=== PATIENT | male | born 2000 | race Caucasian/White ===

== ENCOUNTER 2024-11-19 10:24 | Emergency (ER) | payer BC, SELFPAY ==
--- NOTE | 2024-11-19 10:29 | ED.SKABFB ---
HPI - Skin/Abscess/Foreign Bdy General Chief complaint: Skin/Abscess/Foreign Body Stated complaint: Possible Poison [place] Time Seen by Provider: 11/19/24 10:50 Source: patient, RN notes reviewed and old records reviewed Mode of arrival: ambulatory Limitations: no limitations History of Present Illness HPI narrative: 24-year-old male presents to the [facility] with concerns for a itchy rash to his arms, face and through different parts of his body. Patient reports on Tuesday he was cutting down a tree. Broke out in this rash. Has been applying calamine lotion Denies any difficulty breathing. No lip or tongue swelling. Related Data Allergies Allergy/AdvReac Type Severity Reaction Status Date / Time amoxicillin (From Augmentin) Allergy Unknown Unknown Verified 11/19/24 10:45 clavulanic acid (From Allergy Unknown Unknown Verified 11/19/24 10:45 Augmentin) Review of Systems Review of Systems: All systems reviewed & are unremarkable except as noted in HPI and below Constitutional: Constitutional: Reports no additional constitutional complaints ENT: Reports system reviewed and no additional complaints, except as documented Cardiovascular: Cardiovascular: Reports no additional cardiovascular complaints, Denies chest pain and Denies dyspnea Respiratory: Respiratory: Reports no additional respiratory complaints, Denies chest congestion, Denies cough and Denies dyspnea Musculoskeletal: Musculoskeletal: Reports no additional musculoskeletal complaints Integumentary/Breasts: Skin/Breast: Reports as per HPI PMFSH Comments At the time of my signature, I reviewed and agree with the nursing past medical, surgical, social, and family history. There is no relevant family history pertinent to the patient complaint. Exam Const: General: cooperative, healthy appearing, comfortable, no acute distress, well developed, alert and well nourished Nutritional Appearance: well nourished Orientation/consciousness: patient oriented x3 Limitations: no limitations HENMT: Head: normal to inspection Ears: hearing grossly normal bilaterally, external ears normal, TM's normal bilaterally, EAC's normal, mastoids normal and no periauricular adenopathy Mouth: Yes Normal oral and palatal mucosa present, Yes lip normal, Yes tongue normal and Yes moist mucous membranes Throat: posterior oropharynx normal, uvula midline and no uvular edema Eyes: General: appearance normal, both eyes and all related structures Alignment and Position: alignment normal Neck: Neck: normal visual inspection, full ROM, no lymphadenopathy and no meningeal signs Chest: Chest palpation & inspection: normal inspection of the chest Resp: Effort & Inspection: normal respiratory effort and able to speak in complete sentences Auscultation: clear to auscultation bilaterally, no crackles, no rales, no rhonchi and no wheezes Cardio: Rate: regular rate Skin: General skin exam: normal color and no rashes or lesions noted Rashes: rashes noted (Generalized dermatitis rash) Neuro: General: patient oriented x3, gait normal, moves all extremities and no meningeal signs Cognition (Neuro): normal cognition Speech: normal speech Gait exam (Neuro): Normal gait present Extrem: General: normal to inspection, full ROM, capillary refill normal and normal gait Psych: Appearance: grossly normal and well kempt Mental Status: mental status grossly normal Speech and movement: Normal speech and movement present and Clear speech present Affect: normal affect Attitude: cooperative Course Course Level of Care: Express Care Visit Vital Signs Vital signs: Vital Signs Temperature 97.9 F 11/19/24 10:34 Pulse Rate 69 11/19/24 10:34 Respiratory Rate 18 11/19/24 10:34 Blood Pressure 115/70 11/19/24 10:34 Pulse Oximetry 100 11/19/24 10:34 Oxygen Delivery Room Air 11/19/24 10:34 Temperature 97.9 F 11/19/24 10:34 Pulse Rate 69 11/19/24 10:34 Respiratory Rate 18 11/19/24 10:34 Blood Pressure 115/70 11/19/24 10:34 Pulse Oximetry 100 11/19/24 10:34 Oxygen Delivery Room Air 11/19/24 10:34 Reviewed MDM - Skin/Abscess/Foreign Bdy MDM Narrative Medical decision making narrative: Patient sitting comfortably in exam room. Nontoxic, vitals stable. Patient in no acute distress. Patient presents with a rash x2 days. Patient is appropriate for outpatient treatment of contact dermatitis with close follow-up. Discharge instructions reviewed with patient, as well as provided in writing per nursing staff. The instructions also include specific and strict return/GO TO THE ER as well as f/u information. All questions have been answered, and the patient deny any further questions with discharge and discharge plan. Some parts of this dictation were generated by voice recognition software and may contain typographical and/or grammatical inaccuracies. Differential Diagnosis Differential diagnosis: Likely abscess of skin or subcutaneous tissue, dermatophytosis, urticaria, allergic reaction to drug, cellulitis, eczema, insect bites, impetigo and contact dermatitis Critical Care Time Critical Care Time Critical Care Time: No Discharge Plan Discharge Clinical Impression: Contact dermatitis Patient Disposition: Home, Self-Care Condition: Stable Instructions: Antibiotic Form, Contact Dermatitis (ED) Additional Instructions: The most important part of your care is follow up with Primary care provider. If you are having a hard time finding a physician please call our [facility] liaison at [phone]. Take Benadryl 25-50 mg every 8 hours for itching Take Zyrtec every day Take Pepcid 20mg daily for 7 days Use hydrocortisone cream for the rash Take the steroids starting as soon as you get them. Next dose will be 1st thing in the morning. Avoid hot showers, Take cool showers. Hot showers will make rashes worse Apply cool compresses every 2-3 hours for 15 minutes Go to the ER for new or worsening symptoms such as shortness of breath. Patient Language: Zimbabwean Prescriptions: New prednisone 20 mg tablet See Rx Instructions .Route .COMPLEX Qty: 20 0RF Rx Instructions: Take 60 mg daily for 3 days, 40 mg daily for 3 days, 20 mg daily for 3 days, 10mg day for 3 days Follow-up/Referrals: PHYSICIAN,NUCLEAR INSTRUCTOR [Primary Care Provider] - Stand Alone Forms: Work/School Release IP Time of Disposition: 10:59
[2024-11-19 10:34] VITALS: BP 115/70; PULSE 69; RESP 18; TEMP 36.6; O2SAT 100
--- OUTSIDE RECORDS SUMMARY | 2024-11-19 12:30 | XMS_ITS | Clinical Summary ---
Author Organization [facility] Address [address] [place] [address] Care Team Providers Care Top Printing Press Operator Name Role Phone Harmony Magaña APRN-LEAD CARGOMAN Unavailable [phone] Source Comments [facility],non-owned Affiliates and Associated Physician Practices is amultiple site organization consisting of ambulatory clinics and hospital sitesin [place], [place], [place] and [place]. This disclosure is being madepursuant to the Care Everywhere program and may not contain all information available regarding this patient. Last updated 18.[facility] [employer] Allergies No known active allergies Social History Tobacco Use Types Packs/Day Years Used Date Smoking Tobacco: Never Alcohol Use Standard Drinks/Week Comments Never 0 (1 standard drink = 0.6 oz pur e alcohol) AUDIT-C Answer Date Recorded Frequency of Alcohol Consumption Never 09/14/2019 Average Number of Drinks Not on file 020 Frequency of Binge Drinking Not on file 09/05 Sex and Gender Information Value Date Recorded Sex Assigned at Not on file Gender Identity Not on file Sexual Orientation Not on file Last Filed Vital Signs Vital Sign Reading Time Taken Comments Blood Pressure 122/68 09/15/2019 12:31 AM PASSENGER SCREENER Pulse 89 09/14/2019 11:00 PM PASSENGER SCREENER Temperature 36.8 C (98.3 F) 09/14/2019 11:00 PM PASSENGER SCREENER Respiratory Rate 18 09/15/2019 12:48 AM PASSENGER SCREENER Oxygen Saturation 97% 09/15/2019 12:44 AM PASSENGER SCREENER Inhaled Oxygen Concentration - - Weight 76.4 kg (168 lb 6.4 oz) 09/14/2019 11:00 PM PASSENGER SCREENER Height 182.9 cm (6') 09/14/2019 11:00 PM PASSENGER SCREENER Body Mass Index 22.84 09/14/2019 11:00 PM PASSENGER SCREENER Plan of Treatment Health Maintenance Due Date Last Done Comments HIV SCREENING 2016 HPV VACCINE (1 - Male 3-dose series) 2016 MENINGOCOCCAL (Group B) VACCINE SHARED DECISION-MAKING (1 of 2 - Standard) 2017 HEPATITIS C SCREENING 05/12/2019 DTAP/TDAP/TD VACCINES (1 - Tdap) 2020 HEPATITIS B VACCINE (1 of 3 - 19+ 3-dose series) 2020 COVID-19 VACCINE (5 - season) 2024 11/06/2021, 06/04/2021, 05/07/2021, Additional history exists INFLUENZA VACCINE (#1) 2024 2, 07/24/2021, 06/09/2020 DEPRESSION SCREENING 09/05/2024 ZOSTER VACCINE (1 of 2) 2051 HIB VACCINE Aged Out No longer eligi ble based on patient's age to complete this topic MENINGOCOCCAL GROUPS A/C/Y/W VACCINE Aged Out No longer eligible based on patient's age to complete this topic PNEUMOCOCCAL VACCINE Aged Out No long er eligible based on patient's age to complete this topic Care Teams Top Printing Press Operator Relationship Specialty Start Date End Date Harmony Magaña, FURNACE REPAIR MECHANIC-LEAD CARGOMAN [address] [facility] [address] [place] [phone] PCP - Attributed-[employer] Medicaid [place] 12/05/19
--- OUTSIDE RECORDS SUMMARY | 2024-11-19 12:30 | XMS_ITS | Referral Summary ---
Author Organization [facility] Address [address] [place] [address] Care Team Providers Care Target Worker Name Role Phone Harmony Magaña APRN-MANAGER SPORTS Unavailable [phone] Source Comments [facility],non-owned Affiliates and Associated Physician Practices is amultiple site organization consisting of ambulatory clinics and hospital sitesin [place], [place], [place] and [place]. This disclosure is being madepursuant to the Care Everywhere program and may not contain all information available regarding this patient. Last updated 18.[facility] Allergies No known active allergies Social History [...] Comments Blood Pressure 122/68 09/15/2019 12:31 AM FUSING LINE INSPECTOR Pulse 89 09/14/2019 11:00 PM FUSING LINE INSPECTOR Temperature 36.8 C (98.3 F) 09/14/2019 11:00 PM FUSING LINE INSPECTOR Respiratory Rate 18 09/15/2019 12:48 AM FUSING LINE INSPECTOR Oxygen Saturation 97% 09/15/2019 12:44 AM FUSING LINE INSPECTOR Inhaled Oxygen Concentration - - Weight 76.4 kg (168 lb 6.4 oz) 09/14/2019 11:00 PM FUSING LINE INSPECTOR Height 182.9 cm (6') 09/14/2019 11:00 PM FUSING LINE INSPECTOR Body Mass Index 22.84 09/14/2019 11:00 PM FUSING LINE INSPECTOR Plan of Treatment Not on file Care Teams Target Worker Relationship Specialty Start Date End Date Harmony Magaña, SUPERVISOR MOLDING-MANAGER SPORTS 2 [facility] [address] [place] [address] PCP - Attributed-[employer] Medicaid [place] 12/05/19
--- OUTSIDE RECORDS SUMMARY | 2024-11-19 12:30 | XMS_ITS | Patient Health Summary ---
Author Organization [facility] Address [address] [place] [address] Care Team Providers Care Vertical Boring Mill Operator Name Role Phone Harmony Magaña APRN-DIRECTOR OF RETENTION Unavailable [phone] Note from [facility],non-owned Affiliates and Associated Physician Practices is amultiple site organization consisting of ambulatory clinics and hospital sitesin [place], [place], [place] and [place]. This disclosure is being madepursuant to the Care Everywhere program and may not contain all information available regarding this patient. Last updated 18.[facility] Allergies No known active allergies Social History [...] Comments Blood Pressure 122/68 09/15/2019 12:31 AM LOADER Pulse 89 09/14/2019 11:00 PM LOADER Temperature 36.8 C (98.3 F) 09/14/2019 11:00 PM LOADER Respiratory Rate 18 09/15/2019 12:48 AM LOADER Oxygen Saturation 97% 09/15/2019 12:44 AM LOADER Inhaled Oxygen Concentration - - Weight 76.4 kg (168 lb 6.4 oz) 09/14/2019 11:00 PM LOADER Height 182.9 cm (6') 09/14/2019 11:00 PM LOADER Body Mass Index 22.84 09/14/2019 11:00 PM LOADER Procedures * CT ABDOMEN PELVIS W CONTRAST(Performed 09/14/2019) Performed for RLQ abdominal pain * URINALYSIS REFLEX MICROSCOPIC REFLEX CULTURE(Performed 09/14/2019) * LIPASE BLOOD(Performed 09/14/2019) * COMPREHENSIVE METABOLIC PANEL(Performed 09/14/2019) * CBC W AUTO DIFFERENTIAL(Performed 09/14/2019) Results * CT ABDOMEN AND PELVIS W IV CONTRAST 71104 (09/14/2019 11:44 PM LOADER) Anatomical Region Laterality Modality Abdomen, Pelvis Computed Tomogra phy 09/15/2019 7:00 AM LOADER Impressions 09/15/2019 7:10 AM LOADER No appreciable acute intra-abdominal or pelvic abnormality. Correlate clinically. Exam reviewed compensation advisor and findings conveyed to the emergency department referring service at 2351 hours central time. Narrative 09/15/2019 7:10 AM LOADER IMAGING STUDIES: CT ABDOMEN PELVIS W CONTRAST DATE: 09/14/2019 11:44 PM HISTORY: Right lower quadrant pain. 19-year-old male with lower abdominal cramping for one day. Right lower quadrant and mid abdominal pain intermittently for a a few hours. COMPARISON: No comparisons. DISCUSSION: CT abdomen and pelvis following intravenous administration of 80 ml Isovue 300 contrast. Single phase imaging. Coronal and sagittal reconstructions. No enteric contrast. Automated exposure control with radiation dose reduction. CHEST: No acute infiltrate or consolidation. 5.5 mm right lower lobe calcified granuloma. 9 mm calcified lymph node adjacent to the distal esophagus. CARDIOVASCULAR: Heart size is normal. No pericardial effusion. No abdominal aortic aneurysm or dissection. UPPER ABDOMEN: No acute abnormality of the liver, gallbladder, common bile duct, pancreas, spleen, and adrenal glands. GENITOURINARY: No renal mass, calcification, or hydronephrosis. Urinary bladder and prostate are within normal limits. LYMPHATIC: No apparent adenopathy. GASTROINTESTINAL: Moderate distention of the stomach with ingested food. Mild fluid distention of small bowel and colon. Mild to moderate colonic stool. No apparent bowel obstruction or focal inflammation. No appendicitis. No free fluid in the abdomen or pelvis. SKELETAL: No acute skeletal abnormality. Procedure Note Yo Harris MD - 09/15/2019 IMAGING STUDIES: CT ABDOMEN PELVIS W CONTRAST DATE: 09/14/2019 11:44 PM HISTORY: Right lower quadrant pain. 19-year-old male with lower abdominal cramping for one day. Right lower quadrant and mid abdominal pain intermittently for a a few hours. COMPARISON: No comparisons. DISCUSSION: CT abdomen and pelvis following intravenous administration of 80 ml Isovue 300 contrast. Single phase imaging. Coronal and sagittal reconstructions. No enteric contrast. Automated exposure control with radiation dose reduction. CHEST: No acute infiltrate or consolidation. 5.5 mm right lower lobe calcified granuloma. 9 mm calcified lymph node adjacent to the distal esophagus. CARDIOVASCULAR: Heart size is normal. No pericardial effusion. No abdominal aortic aneurysm or dissection. UPPER ABDOMEN: No acute abnormality of the liver, gallbladder, common bile duct, pancreas, spleen, and adrenal glands. GENITOURINARY: No renal mass, calcification, or hydronephrosis. Urinary bladder and prostate are within normal limits. LYMPHATIC: No apparent adenopathy. GASTROINTESTINAL: Moderate distention of the stomach with ingested food. Mild fluid distention of small bowel and colon. Mild to moderate colonic stool. No apparent bowel obstruction or focal inflammation. No appendicitis. No free fluid in the abdomen or pelvis. SKELETAL: No acute skeletal abnormality. IMPRESSION No appreciable acute intra-abdominal or pelvic abnormality. Correlate clinically. Exam reviewed compensation advisor and findings conveyed to the emergency department referring service at 2351 hours central time. Petra Bazan PRODUCT SAFETY [facility]AD[facility] ORDERABLES * URINALYSIS REFLEX MICROSCOPIC REFLEX CULTURE (09/14/2019 11:11 PM LOADER) Color UA Yellow Straw, Yellow 09/14/2019 11:21 PM LOADER [facility] Clarity UA Clear Clear 09/14/2019 11:21 PM LOADER [facility] Glucose UA Negative Negative 09/14/2019 11:21 PM LOADER [facility] Bilirubin UA Negative Negative 09/14/2019 11:21 PM LOADER [facility] Ketone UA Negative Negative 09/14/2019 11:21 PM LOADER [facility] Specific K[place]aid UA 1.015 1.005 - 1.030 09/14/2019 11:21 PM LOADER [facility] Blood UA Negative Negative 09/14/2019 11:21 PM LOADER [facility] pH UA 5.0 5.0 - 8.0 pH 09/14/2019 11:21 PM LOADER [facility] Protein UA Negative Negative 09/14/2019 11:21 PM LOADER [facility] Urobilinogen UA Negative Negative mg/dL 09/14/2019 11:21 PM LOADER [facility] Nitrite UA Negative Negative 09/14/2019 11:21 PM LOADER [facility] Leukocyte UA Negative Negative 09/14/2019 11:21 PM LOADER [facility] Urine Microscopy Urine microscopy not indicated 09/14/2019 11:21 PM LOADER [facility] Reflex Status Culture not indicated 09/14/2019 11:21 PM LOADER [facility] Urine URINE SPECIMEN OBTAINED BY CLEAN CATCH PROCEDURE / Unknown Collection / Unknown 09/14/2019 11:11 PM LOADER 09/14/2019 11:16 PM LOADER [facility] - 09/14/2019 11:21 PM LOADER Jerrell Camejo DO LAB - URINALYSIS OR DERABLES Performing Organization Address [facility]/State/[facility] Co de Phone Number [facility] [address] * (ABNORMAL) CBC W AUTO DIFFERENTIAL (09/14/2019 11:05 PM LOADER) WBC 11.0(H) 4.0 - 10.0 x10E9/L 09/14/2019 11:13 PM LOADER [facility] RBC 4.97 4.40 - 6.10 x10E12/L 09/14/2019 11:13 PM LOADER [facility] Hemoglobin 15.2 13.7 - 17.5 gm/dL 09/14/2019 11:13 PM LOADER [facility] Hematocrit 44.4 40.1 - 51.0 % 09/14/2019 11:13 PM LOADER [facility] MCV 89.3 78.0 - 100.0 fl 09/14/2019 11:13 PM LOADER [facility] MCH 30.6 25.6 - 34.0 pg 09/14/2019 11:13 PM LOADER [facility] MCHC 34.2 32.3 - 36.5 gm/dL 09/14/2019 11:13 PM LOADER [facility] RDW 12.9 11.6 - 14.4 % 09/14/2019 11:13 PM LOADER [facility] MPV 11.2 9.4 - 12.4 fl 09/14/2019 11:13 PM LOADER [facility] Platelet Count 221 175 - 345 x10E9/L 09/14/2019 11:13 PM LOADER [facility] Neutrophils % 72.7 40.0 - 75.0 % 09/14/2019 11:13 PM [facility] Lymphocytes % 21.8 19.3 - 53.1 % 09/14/2019 11:13 PM [facility] Monocytes % 4.9 4.7 - 12.5 % 09/14/2019 11:13 PM LOADER [facility] Eosinophils % 0.2(L) 0.7 - 7.0 % 09/14/2019 11:13 PM [facility] Basophils % 0.2 0.1 - 1.2 % 09/14/2019 11:13 PM [facility] Immature Granulocytes 0.2 0 - 0.5 % 09/14/2019 11:13 PM [facility] Neutrophil Absolute 7.99(H) 1.56 - 6.13 x10E9/L 09/14/2019 11:13 PM [facility] Lymphocytes Absolute 2.39 1.18 - 3.74 x10E9/L 09/14/2019 11:13 PM [facility] Monocytes Absolute 0.54 0.24 - 0.86 x10E9/L 09/14/2019 11:13 PM [facility] Eosinophils Absolute 0.02(L) 0.04 - 0.54 x10E9/L 09/14/2019 11:13 PM [facility] Basophils Absolute 0.02 0.01 - 0.08 x10E9/L 09/14/2019 11:13 PM [facility] Immature Granulocytes Absolute 0.02 0 - 0.03 x10E9/L 09/14/2019 11:13 PM [facility] nRBC Auto 0 <=0 /100 WBC 09/14/2019 11:13 PM [facility] nRBC Absolute 0.00 <=0 x10E9/L 09/14/2019 11:13 PM [facility] Blood BLOOD SPECIMEN / Unknown Venipuncture / Unknown 09/14/2019 11:05 PM LOADER 09/14/2019 11:10 PM LOADER Jerrell Imran Nell DO LAB - HEMATOLOGY OR DERABLES [facility] [address] [place] [address], [facility] * COMPREHENSIVE METABOLIC PANEL (09/14/2019 11:05 PM LOADER) Glucose 78 70 - 125 mg/dL 09/14/2019 11:30 PM LOADER [facility] Sodium 142 136 - 145 mmol/L 09/14/2019 11:30 PM [facility] Potassium 3.5 3.4 - 4.5 mmol/L 09/14/2019 11:30 PM [facility] Chloride 105 98 - 107 mmol/L 09/14/2019 11:30 PM [facility] CO2 24 22 - 29 mmol/L 09/14/2019 11:30 PM [facility] Calcium 9.87 8.4 - 10.2 mg/dL 09/14/2019 11:30 PM [facility] Anion Gap 17 10 - 20 mmol/L 09/14/2019 11:30 PM [facility] BUN 17.2 8.4 - 25.7 mg/dL 09/14/2019 11:30 PM [facility] Creatinine 1.07 0.72 - 1.25 mg/dL 09/14/2019 11:30 PM [facility] eGFR by MDRD >60 >60 mL/min/1.7 3m2 09/14/2019 11:30 PM [facility] eGFR by MDRD >60 >60 mL/min/1.7 3m2 09/14/2019 11:30 PM [facility] Alkaline Phosphatase 74 40 - 150 U/L 09/14/2019 11:30 PM [facility] ALT 11 5 - 55 U/L 09/14/2019 11:30 PM [facility] AST 22 5 - 34 U/L 09/14/2019 11:30 PM [facility] Protein Total 7.8 6.4 - 8.3 gm/dL 09/14/2019 11:30 PM [facility] Albumin 4.4 3.5 - 5.0 gm/dL 09/14/2019 11:30 PM [facility] Globulin Total 3.4 2.6 - 4.0 gm/dL 09/14/2019 11:30 PM LOADER [facility] Albumin/Globulin Ratio 1.3 0.9 - 1.6 09/14/2019 11:30 PM LOADER [facility] Bilirubin Total 0.6 0.2 - 1.2 mg/dL 09/14/2019 11:30 PM LOADER [facility] Blood BLOOD SPECIMEN / Unknown Venipuncture / Unknown 09/14/2019 11:05 PM LOADER 09/14/2019 11:10 PM LOADER Jerrell Camejo DO LAB - CHEMISTRY ORD ERABLES [facility] [address] * LIPASE BLOOD (09/14/2019 11:05 PM LOADER) Lipase 21 8 - 78 U/L 09/14/2019 11:34 PM LOADER [facility] Blood BLOOD SPECIMEN / Unknown Venipuncture / Unknown 09/14/2019 11:05 PM LOADER 09/14/2019 11:10 PM LOADER Jerrell Camejo DO LAB - CHEMISTRY ORD ERABLES [facility] [address] Care Teams Vertical Boring Mill Operator Relationship Specialty Start Date End Date Harmony Magaña APRN-DIRECTOR OF RETENTION 2 [facility] [address] [place] [phone] PCP - Attributed-[employer] Medicaid [place] 12/05/19
== END 2024-11-19 11:01 | disposition home or self-care (01) ==
PROVIDERS: Emergency Provider Nurse Practitioner
DX: L25.9 Unspecified contact dermatitis, unspecified cause (principal); Z86.16 Personal history of COVID-19
CPT/HCPCS: 99203; G0463